=== PATIENT | male | born 1975 | race Caucasian/White ===

== ENCOUNTER → 2017-11-06 18:35 | Outpatient (CLI) | payer OTHER | END | disposition home or self-care (01) | LOC: D.SLEEP 18:35 | DX: G47.33 Obstructive sleep apnea (adult) (pediatric) (principal) ==

== ENCOUNTER → 2018-12-19 07:59 | Outpatient (CLI) | payer BC | END | disposition home or self-care (01) | LOC: D.CT 07:59 | PROVIDERS: ATTEND Clinical Nurse Specialist Adult Health | DX: K40.90 Unilateral inguinal hernia, without obstruction or gangrene, not specified as recurrent (principal); R93.89 Abnormal findings on diagnostic imaging of other specified body structures ==

== ENCOUNTER → 2019-01-03 11:44 | Outpatient (CLI) | payer BC ==
[2019-01-04 11:10] LABS: ANA REFLEX - DIRECT Negative (Negative)
[2019-01-04 19:08] LABS: ANGIOTENSIN CONVERTING ENZYME 32 U/L (14-82)
[2019-01-06 13:20] LABS: IMMUNOGLOBULIN E 12 IU/mL (6-495)
[2019-01-08 17:08] LABS: FUNGAL - ASP FLAVUS Negative (Neg:<1:1); FUNGAL - ASP NIGER Negative (Neg:<1:1); FUNGAL - ASPER FUMIGATUS Negative (Neg:<1:1)
== END | disposition home or self-care (01) ==
LOC: D.LAB 11:44
PROVIDERS: ATTEND Internal Medicine Pulmonary Disease
DX: J42 Unspecified chronic bronchitis (principal)

== ENCOUNTER → 2019-04-19 12:54 | Outpatient (CLI) | payer BC | END | disposition home or self-care (01) | LOC: D.CT 12:54 | PROVIDERS: ATTEND Internal Medicine Pulmonary Disease | DX: R91.1 Solitary pulmonary nodule (principal) ==